=== PATIENT | female | born 1955 | race Caucasian/White ===

== ENCOUNTER 2019-08-20 11:44 | Emergency (ER) | payer OTHER ==
[~2019-08-20] VITALS: Ht 152.4 cm; Wt 77.2 kg
[~2019-08-20 11:44] MED LIST: BUPR50TA PO; HYDR-3715 PO; HYDR25TAB PO; ZOFR4TAB14 PO
[2019-08-20 12:20] LABS: BASO % 0.4 % (0.0-1.0); EOS # 0.1 10^3/uL (0.0-0.5); EOS % 1.1 % (0.0-3.0); HEMATOCRIT 42.6 % (36.0-47.0); HEMOGLOBIN 14.4 g/dl (12.0-15.5); LYMPH # 1.7 10^3/uL (1.5-5.0); LYMPH % 29.7 % (24.0-44.0); MEAN CORPUSCULAR HEMOGLOBIN 30.9 pg (27.0-33.0); MEAN CORPUSCULAR HGB CONC 33.8 g/dl (32.0-36.5); MEAN CORPUSCULAR VOLUME 91.4 fl (80.0-96.0); MONO # 0.4 10^3/uL (0.0-0.8); MONO % 6.8 % (0.0-5.0); NEUTROPHILS # 3.5 10^3/uL (1.5-8.5); NEUTROPHILS % 61.8 % (36.0-66.0); PLATELET COUNT, AUTOMATED 348 10^3/uL (150-450); RED BLOOD COUNT 4.66 10^6/uL (4.00-5.40); WHITE BLOOD COUNT 5.6 10^3/uL (4.0-10.0)
[2019-08-20 12:44] LABS: ALBUMIN 3.7 GM/DL (3.2-5.2); ALT/SGPT 35 U/L (12-78); BILIRUBIN,DIRECT < 0.1 MG/DL (0.0-0.2); BILIRUBIN,TOTAL 0.5 MG/DL (0.2-1.0); LIPASE 83 U/L (73-393); TOTAL PROTEIN 6.9 GM/DL (6.4-8.2)
--- NOTE | 2019-08-20 14:14 | REP ---
UPPER QUADRANT SONOGRAPHY: HISTORY: Right upper quadrant pain. COMPARISON STUDY: July 27, 2017 SONOGRAPHIC FINDINGS: Scanning through the right upper quadrant of the abdomen again demonstrates a shadowing calculus in the neck of the gallbladder. There is some tenderness to scanning over the gallbladder. Common bile duct is at the upper range of normal in size measuring 0.65 cm. No focal liver lesion is seen. Limited views of the pancreas show no abnormality. There is no evidence of ascites or right renal abnormality. Right kidney measures 10.2 x 5.4 x 4.7 cm. IMPRESSION: Cholelithiasis is again noted. Borderline CBD 0.65 cm. Otherwise negative. Electronically Signed by Jamie Morales MD 08/20/2019 02:55 P
[2019-08-20] MEDS ORDERED: NORC1TAB7 PO (14:37)
[2019-08-20 14:43] VITALS: BP 148/72
--- NOTE | 2019-08-22 08:21 | ED PDOC ---
Post-Departure Follow-Up dr estrada and daisy arreguin faxed formal report [facility] for fu Nino Acevedo MD Aug 22, 2019 08:21
== END 2019-08-20 14:45 | disposition home or self-care (01) ==
LOC: M ED 11:44
DX: K80.70 Calculus of gallbladder and bile duct without cholecystitis without obstruction (principal); I10 Essential (primary) hypertension; K21.9 Gastro-esophageal reflux disease without esophagitis; Z88.5 Allergy status to narcotic agent; Z79.899 Other long term (current) drug therapy

== ENCOUNTER → 2019-09-18 | Outpatient (CLI) | payer OTHER ==
[~2019-09-18] MED LIST changes: +B COCAP4 PO; +BUPR-69 PO; -BUPR50TA PO; +NORC1TAB7 PO; +VITA500C24 PO; +[UNRECOGNIZED DRUG - OTHER] PO
== END ==
LOC: M LABSMTC 10:06
PROVIDERS: ATTEND Anesthesiology
DX: Z01.818 Encounter for other preprocedural examination (principal); Z11.59 Encounter for screening for other viral diseases; Z20.828 Contact with and (suspected) exposure to other viral communicable diseases
CPT/HCPCS: C9803; U0003

== ENCOUNTER → 2022-07-04 | Outpatient (CLI) | payer MEDICARE ==
[~2022-07-04] MED LIST changes: +HYDR-3490 PO; -HYDR25TAB PO
== END ==
LOC: M WHC 07:21
PROVIDERS: ATTEND Nurse Practitioner Family
DX: R10.11 Right upper quadrant pain (principal)

== ENCOUNTER → 2022-10-30 | Outpatient (REF) | payer MEDICARE | LOC: M SFHCDERM 12:43 | PROVIDERS: ATTEND Nurse Practitioner Family | DX: L72.11 Pilar cyst (principal) ==

== ENCOUNTER → 2022-11-14 | Outpatient (REF) | payer MEDICARE | LOC: M LAB REF 14:39 | PROVIDERS: ATTEND Surgery | DX: D48.5 Neoplasm of uncertain behavior of skin (principal); L72.11 Pilar cyst ==